=== PATIENT | female | born 2000 | race African-American/Black ===

== ENCOUNTER 2019-07-30 13:26 | Emergency (ER) | payer OTHER ==
[2019-07-30 13:31] VITALS: BMI 24.5
[2019-07-30] MEDS ORDERED: ONDANSETRON 4 MG/2 ML VIAL IVPUSH ONE (14:21)
[2019-07-30] MEDS ORDERED: SODIUM CHLORIDE 1,000 ML IV STA (14:21)
[2019-07-30] MEDS ORDERED: KETOROLAC TROMETHAMINE 30 MG/1 ML VIAL IVPUSH ONE (14:21)
[2019-07-30] MEDS ORDERED: KETOROLAC TROMETHAMINE 30 MG/1 ML VIAL ONE (14:59)
[2019-07-30] MEDS ORDERED: ONDANSETRON 4 MG/2 ML VIAL ONE (15:00)
[2019-07-30 15:04] LABS: BASO % 0.9 % (0-2.0); EOS % 1.3 % (0-4.5); HEMATOCRIT 38.8 % (32.4-45.2); HEMOGLOBIN 13.2 GM/dL (10.7-15.3); LYMPH % 17.8 % (8-40); MCH 30.3 pg (25.7-33.7); MCHC 34.1 g/dl (32.0-36.0); MEAN CELL VOLUME 89.1 fl (80-96); MEAN PLT VOLUME 7.2 fl (7.5-11.1); MONO % 5.7 % (3.8-10.2); NEUT % 74.3 % (42.8-82.8); PLATELET COUNT 315 K/MM3 (134-434); RBC 4.36 M/mm3 (3.60-5.2); RDW 12.8 % (11.6-15.6)
--- NOTE | 2019-07-30 15:11 | PDOC ---
History of Present Illness - General Chief Complaint: Pain Stated Complaint: ABD PAIN Time Seen by Provider: 07/30/19 14:20 History Source: Patient Exam Limitations: No Limitations - History of Present Illness Travel History: No Initial Comments: 07/30/19 15:14 18-year-old female with no past medical history except for recent wisdom tooth extraction on the fourth presents the ED for evaluation of nausea and vomiting with upper abdominal cramping. Patient states had taken 2 Tylenol with codeine following the extraction which seemed to cause her some nausea and abdominal cramping to her upper abdomen. Patient states that taking the medication and only has been taking Motrin 600 as prescribed. Patient denies fever, chills but states generalized fatigue secondary to vomiting. Patient denies dysuria, hematuria, irregular menses, or diarrhea. Patient also denies recent travel, recent illness upper abdomen. Patient states that taking the medication Timing/Duration: reports: constant Quality: reports: mild, cramping, sharpness Abdominal Pain Onset Location: reports: epigastric Pain Radiation: reports: RUQ, RLQ Activities at Onset: reports: none Aggravating Factors: improves with: None Alleviating Factors: improves with: None Past History - Travel Traveled outside of the country in the last 30 days: No Close contact w/someone who was outside of country & ill: No - Past Medical History Allergies/Adverse Reactions: Allergies Allergy/AdvReac Type Severity Reaction Status Date / Time No Known Allergies Allergy Verified 07/30/19 13:31 Home Medications: Ambulatory Orders Oxycodone HCl/Acetaminophen [Percocet 5-325 mg Tablet -] 1 - 2 tab PO Q4H PRN # 10 tablet MDD 4 03/29/16 COPD: No - Immunization History Immunization Up to Date: Yes - Psycho Social/Smoking Cessation Hx Smoking History: Current every day smoker Number of Cigarettes Smoked Daily: 2 Information on smoking cessation initiated: No Hx Alcohol Use: No Drug/Substance Use Hx: No Substance Use Type: None Patient Lives Alone: No Lives with/in: parents Review of Systems - Review of Systems Able to Perform ROS?: Yes Constitutional: No: Symptoms Reported HEENTM: No: Symptoms Reported Respiratory: No: Symptoms reported Cardiac (ROS): No: Symptoms Reported ABD/GI: Yes: Nausea, Poor Appetite, Poor Fluid Intake, Vomiting, Abdominal cramping. No: Constipated, Diarrhea : No: Symptoms Reported Musculoskeletal: No: Symptoms Reported Integumentary: No: Symptoms Reported Neurological: No: Symptoms reported *Physical Exam - Vital Signs Last Vital Signs Temp Pulse Resp BP Pulse Ox 98.6 F 77 18 119/68 98 07/30/19 13:27 07/30/19 13:27 07/30/19 13:27 07/30/19 13:27 07/30/19 13:27 - Physical Exam General Appearance: Yes: Nourished, Appropriately Dressed. No: Apparent Distress HEENT: positive: EOMI, Pharynx Normal (dry) Neck: positive: Normal Thyroid Respiratory/Chest: positive: Lungs Clear, Normal Breath Sounds. negative: Respiratory Distress, Accessory Muscle Use Cardiovascular: positive: Regular Rhythm, Regular Rate. negative: Murmur Gastrointestinal/Abdominal: positive: Normal Bowel Sounds, Soft, Tenderness ( epigastric and periumbilical, mild ruq/rlq tenderness). negative: Distended, Guarding, Rebound Musculoskeletal: negative: CVA Tenderness Integumentary: positive: Normal Color, Warm, Moist Neurologic: positive: Motor Strength 5/5 (ambulatory) ED Treatment Course - LABORATORY CBC & Chemistry Diagram: 07/30/19 14:50 07/30/19 14:50 - Medications Given in the ED: ED Medications Discontinued Medications Generic Name Dose Route Start Last Admin Trade Name Felecia PRN Reason Stop Dose Admin Ketorolac Tromethamine 30 mg 07/30/19 14:21 07/30/19 14:56 Toradol Injection - IVPUSH 07/30/19 14:22 30 mg ONCE ONE Administration Ondansetron HCl 4 mg 07/30/19 14:21 07/30/19 14:57 Zofran Injection IVPUSH 07/30/19 14:22 4 mg ONCE ONE Administration Medical Decision Making - Medical Decision Making 07/30/19 15:25 Chief complaint: Nausea vomiting upper abdominal cramping since Friday. Patient status post wisdom tooth extraction on Friday which went uneventful. Patient states symptoms began as abdominal cramping after taking Tylenol with codeine for the tooth pain on Friday and when she took a second dose the cramping increased. Patient stopped taking the medication but states cramping has continued along with nausea and vomiting. Exam: Patient with epigastric and periumbilical tenderness along with right upper quadrant and right lower quadrant mild tenderness. Otherwise vital signs stable. Patient actively heaving in the ER. Plan: Labs, urine, antiemetics, Toradol, and fluids ordered 07/30/19 15:27 Laboratory Tests 07/30/19 07/30/19 07/30/19 14:20 14:20 14:50 WBC 8.0 Hgb 13.2 Hct 38.8 Neutrophils % 74.3 Sodium Potassium Chloride Carbon Dioxide Anion Gap BUN Creatinine Random Glucose Calcium Magnesium Total Bilirubin AST ALT Lipase Urine Protein 1+ H Urine Ketones 1+ H Urine Blood Negative Urine Nitrite Negative Ur Leukocyte Esterase Trace Urine WBC (Auto) 5 Urine RBC (Auto) 4 Urine HCG, Qual Negative 07/30/19 07/30/19 14:50 14:50 WBC Hgb Hct Neutrophils % Sodium 138 Potassium 3.9 Chloride 106 Carbon Dioxide 24 Anion Gap 7 L BUN 9.7 Creatinine 0.7 Random Glucose 91 Calcium 9.3 Magnesium 2.2 Total Bilirubin 0.5 AST 14 L ALT 15 Lipase 61 L Urine Protein Urine Ketones Urine Blood Urine Nitrite Ur Leukocyte Esterase Urine WBC (Auto) Urine RBC (Auto) Urine HCG, Qual Patient states feeling much better and wants to be discharged. Patient will be discharged home with Zofran with recommendations to follow bland diet for the next few days Discharge - Discharge Information Problems reviewed: Yes Clinical Impression/Diagnosis: Nausea and vomiting Condition: Improved Disposition: HOME - Follow up/Referral - Patient Discharge Instructions Patient Printed Discharge Instructions: Nausea and Vomiting-Adult Additional Instructions: Take Zofran as needed for nausea. Eat bland food for the next 3 days then may advance as tolerated drink plenty of fluids and rest. If your symptoms worsen despite above recommendations please return to ED. Otherwise follow-up with your doctor - Post Discharge Activity
[2019-07-30 15:15] LABS: MAGNESIUM 2.2 mg/dL (1.8-2.4)
[2019-07-30 15:17] LABS: EPI CELLS 5.7 /HPF (0-5/HPF); HYALINE CASTS 9 /lpf (0-8); PH,URINE 5.5 (5.0-8.0); URINE APPEARANCE CLEAR; URINE BACTERIA 194.9 /hpf (NEGATIVE); URINE BILIRUBIN NEGATIVE (NEGATIVE); URINE COLOR YELLOW; URINE GLUCOSE (UA) NEGATIVE (NEGATIVE); URINE KETONE 1+ (NEGATIVE); URINE LEUK ESTERASE TRACE (NEGATIVE); URINE NITRITE NEGATIVE (NEGATIVE); URINE PROTEIN 1+ (NEGATIVE); URINE RBC 4 /hpf (0-4); URINE WBC 5 /hpf (0-5)
[2019-07-30 15:26] LABS: ALBUMIN 4.2 g/dl (3.4-5.0); BILIRUBIN,TOTAL 0.5 mg/dL (0.2-1); BLOOD UREA NITROGEN 9.7 mg/dL (7-18); CALCIUM 9.3 mg/dL (8.5-10.1); CREATININE 0.7 mg/dL (0.55-1.3); POTASSIUM 3.9 mmol/L (3.5-5.1); TOT PROT 8.2 g/dl (6.4-8.2)
[2019-07-30 15:59] VITALS: BP 121/77; PULSE 61; TEMP 97.9
== END 2019-07-30 15:59 | disposition home or self-care (01) ==
LOC: JER 13:26
PROC: 3E0333Z Introduction of Anti-inflammatory into Peripheral Vein, Percutaneous Approach (ICD-10-PCS; principal; 2019-07-30)
PROC: 3E033GC Introduction of Other Therapeutic Substance into Peripheral Vein, Percutaneous Approach (ICD-10-PCS; 2019-07-30)
DX: R11.2 Nausea with vomiting, unspecified (principal); F17.210 Nicotine dependence, cigarettes, uncomplicated
CPT/HCPCS: 36415; 80053; 81003; 83690; 83735; 84703; 85025; 87086; 96374; 96375; 99282-25; J7030